=== PATIENT | male | born 1965 | race Asian ===

== ENCOUNTER 2024-07-07 19:47 | Inpatient (IN) | payer BC, MEDICAID ==
[~2024-07-07] VITALS: Ht 152.4 cm; Wt 51.3 kg
[2024-07-07 19:47] VITALS: BP 116/67; PULSE 105; RESP 18; TEMP 98.8; O2SAT 96
[2024-07-07] MEDS: metroNIDAZOLE 500 MG/NS PREMIX 100 ML IV ONE (20:34)
[2024-07-07] MEDS: NACL 0.9% 1,000 ML IV ONE (20:34)
[2024-07-07] MEDS: KETOROLAC 30 MG/ML VIAL IVP ONE (20:35)
[2024-07-07 20:44] LABS: BASOPHILS # (AUTO) 0.1 K/uL (0.00-0.22); BASOPHILS % (AUTO) 0.4 % (0.0-2.0); EOSINOPHILS % (AUTO) 0.2 % (0.0-4.0); HEMATOCRIT 34.3 % (36-52); HEMOGLOBIN 10.7 g/dL (12.0-18.0); LYMPHOCYTES # (AUTO) 1.1 K/uL (2.0-11.5); LYMPHOCYTES % (AUTO) 8.8 % (20.5-51.1); MEAN CORPUSCULAR HEMOGLOBIN 22 pg (27-31); MEAN CORPUSCULAR HGB CONC 31 g/dL (33-37); MEAN CORPUSCULAR VOLUME 70.9 fL (80-94); MONOCYTES # (AUTO) 1.3 K/uL (0.8-1.0); MONOCYTES % (AUTO) 10.1 % (1.7-9.3); NEUTROPHILS # (AUTO) 10.2 K/uL (1.8-7.7); NEUTROPHILS % (AUTO) 80.5 % (42.2-75.2); PLATELET COUNT (AUTO) 494 K/uL (140-450); RED BLOOD CELL COUNT(AUTO) 4.83 MIL/uL (4.20-6.10); RED CELL DISTRIBUTION WIDTH 20.4 % (11.6-13.7); WHITE BLOOD COUNT (AUTO) 12.6 K/uL (4.8-10.8)
[2024-07-07 21:00] LABS: ANION GAP 13.6 (8-16); CALCIUM 8.6 mg/dL (8.5-10.1); CARBON DIOXIDE 22.1 mmol/L (21-32)
[2024-07-07 21:01] LABS: ALBUMIN 2.9 g/dL (3.4-5.0); BILIRUBIN,DIRECT 0.1 mg/dL (0.0-0.3); TOTAL BILIRUBIN 0.2 mg/dL (0.0-1.0); TOTAL PROTEIN, SERUM 8.3 g/dL (6.4-8.2)
[2024-07-07 21:03] LABS: POTASSIUM 2.7 mmol/L (3.5-5.1)
[2024-07-07 21:08] LABS: LACTIC ACID 0.7 mmol/L (0.4-2.0)
[2024-07-07] MEDS: KCL 20 MEQ IN 100 mL PREMIX 100 ML IV ONE (21:55)
[2024-07-07] MEDS ORDERED: SUCR1TAB6 PO (23:21)
[2024-07-07] MEDS ORDERED: PANT40EC PO (23:21)
[2024-07-08] MEDS ORDERED: ONDANSETRON 4 MG/2 ML VIAL IVP PRN (01:10)
[2024-07-08] MEDS: NACL 0.9% 1,000 ML IV SCH ×2 (01:38→12:12)
[2024-07-08] MEDS ORDERED: metroNIDAZOLE 500 MG/NS PREMIX 100 ML IV ONE (01:40)
[2024-07-08] MEDS: metroNIDAZOLE 500 MG/NS PREMIX 100 ML IV SCH ×2 (04:23→12:19)
[2024-07-08 07:05] LABS: BASOPHILS # (AUTO) 0.1 K/uL (0.00-0.22); BASOPHILS % (AUTO) 0.8 % (0.0-2.0); EOSINOPHILS % (AUTO) 0.3 % (0.0-4.0); HEMATOCRIT 31.3 % (36-52); HEMOGLOBIN 10.2 g/dL (12.0-18.0); LYMPHOCYTES # (AUTO) 1.1 K/uL (2.0-11.5); LYMPHOCYTES % (AUTO) 10.5 % (20.5-51.1); MEAN CORPUSCULAR HEMOGLOBIN 23 pg (27-31); MEAN CORPUSCULAR HGB CONC 33 g/dL (33-37); MEAN CORPUSCULAR VOLUME 70.3 fL (80-94); MONOCYTES # (AUTO) 1.4 K/uL (0.8-1.0); MONOCYTES % (AUTO) 13.7 % (1.7-9.3); NEUTROPHILS # (AUTO) 7.9 K/uL (1.8-7.7); NEUTROPHILS % (AUTO) 74.7 % (42.2-75.2); PLATELET COUNT (AUTO) 470 K/uL (140-450); RED BLOOD CELL COUNT(AUTO) 4.46 MIL/uL (4.20-6.10); WHITE BLOOD COUNT (AUTO) 10.6 K/uL (4.8-10.8)
[2024-07-08 07:26] LABS: ANION GAP 12.2 (8-16); CALCIUM 8.1 mg/dL (8.5-10.1); CARBON DIOXIDE 22.7 mmol/L (21-32); CREATININE 1.5 mg/dL (0.6-1.3)
[2024-07-08 08:00] VITALS: BP 114/66; PULSE 58; RESP 18; TEMP 98.5; O2SAT 98
[2024-07-08 08:05] LABS: POTASSIUM 2.9 mmol/L (3.5-5.1)
[2024-07-08 08:36] LABS: ALBUMIN 2.7 g/dL (3.4-5.0); MAGNESIUM 2.6 mg/dL (1.8-2.4); PHOSPHORUS 2.3 mg/dL (2.5-4.9); TOTAL BILIRUBIN 0.2 mg/dL (0.0-1.0); TOTAL PROTEIN, SERUM 7.5 g/dL (6.4-8.2)
[2024-07-08] MEDS: PANTOPRAZOLE 40 MG TABEC PO SCH (12:13)
[2024-07-08] MEDS: KCL 20 MEQ IN 100 mL PREMIX 200 ML IV SCH (12:15)
[2024-07-08] MEDS: POTASSIUM CHLORIDE 10 MEQ TABER PO PRN (12:15)
[2024-07-08] MEDS: POTASSIUM CHLORIDE 20% 40 MEQ/15 ML UDC PO SCH (12:19)
[2024-07-08 20:00] VITALS: BP 131/78; PULSE 100; RESP 18; TEMP 98; O2SAT 99
[2024-07-08 20:11] VITALS: O2SAT 99
[2024-07-08] MEDS: MELATONIN 3 MG TAB PO ONE (23:02)
[2024-07-09 04:00] VITALS: BP 124/77; PULSE 82; RESP 18; TEMP 97.6; O2SAT 99
[2024-07-09 07:27] LABS: HEMATOCRIT 26.4 % (36-52); HEMOGLOBIN 8.4 g/dL (12.0-18.0); MEAN CORPUSCULAR HEMOGLOBIN 23 pg (27-31); MEAN CORPUSCULAR HGB CONC 32 g/dL (33-37); MEAN CORPUSCULAR VOLUME 70.9 fL (80-94); PLATELET COUNT (AUTO) 461 K/uL (140-450); RED BLOOD CELL COUNT(AUTO) 3.72 MIL/uL (4.20-6.10); WHITE BLOOD COUNT (AUTO) 8.2 K/uL (4.8-10.8)
[2024-07-09 07:42] VITALS: O2SAT 100
[2024-07-09 07:46] LABS: ALBUMIN 2.3 g/dL (3.4-5.0); ANION GAP 10.3 (8-16); CARBON DIOXIDE 23.3 mmol/L (21-32); CREATININE 1.2 mg/dL (0.6-1.3); PHOSPHORUS 2.5 mg/dL (2.5-4.9); POTASSIUM 3.6 mmol/L (3.5-5.1); TOTAL BILIRUBIN 0.2 mg/dL (0.0-1.0); TOTAL PROTEIN, SERUM 6.4 g/dL (6.4-8.2)
[2024-07-09 08:00] VITALS: BP 110/62; PULSE 74; PULSE 79; RESP 17; RESP 19; TEMP 97.8; O2SAT 99
[2024-07-09 08:09] LABS: BASOPHILS % (MANUAL) 0 % (0-2); BLASTS, MANUAL % 0 % (0-0); EOSINOPHILS % (MANUAL) 2 % (0-4); LYMPHOCYTES % (MANUAL) 27 % (20-46); METAMYELOCYTES % 0 % (0-0); MONOCYTES % (MANUAL) 7 % (5-12); MYELOCYTES % 0 % (0-0); OTHER CELLS,MANUAL % 0 (0-0); PROMYELOCYTES % 0 % (0-0)
[2024-07-09 08:10] LABS: ANISOCYTOSIS 2+; OVALOCYTES 1+; PLASMA CELLS 0; PLATELET ESTIMATE INCREASED; SCHISTOCYTES 1+; SMUDGE CELLS 0; TEAR DROP CELLS 1+
[2024-07-09] MEDS: FOLIC ACID 1 MG TAB PO SCH (09:00)
[2024-07-09] MEDS: CYANOCOBALAMIN 100 MCG TAB PO SCH (09:00)
[2024-07-09 16:00] VITALS: BP 106/56; PULSE 69; RESP 17; TEMP 98; O2SAT 99
[2024-07-09 20:00] VITALS: BP 125/64; PULSE 94; RESP 19; TEMP 98.2; O2SAT 98
[2024-07-09 20:06] VITALS: O2SAT 98
[2024-07-10 04:00] VITALS: BP 108/58; PULSE 82; RESP 17; TEMP 97.7; O2SAT 99
[2024-07-10 07:11] LABS: BASOPHILS # (AUTO) 0.1 K/uL (0.00-0.22); BASOPHILS % (AUTO) 1.2 % (0.0-2.0); EOSINOPHILS # (AUTO) 0.6 K/uL (0-0.4); EOSINOPHILS % (AUTO) 7.4 % (0.0-4.0); HEMATOCRIT 24.6 % (36-52); LYMPHOCYTES # (AUTO) 2.1 K/uL (2.0-11.5); LYMPHOCYTES % (AUTO) 26.3 % (20.5-51.1); MEAN CORPUSCULAR HEMOGLOBIN 23 pg (27-31); MEAN CORPUSCULAR HGB CONC 32 g/dL (33-37); MEAN CORPUSCULAR VOLUME 71.1 fL (80-94); MONOCYTES # (AUTO) 1.5 K/uL (0.8-1.0); MONOCYTES % (AUTO) 18.7 % (1.7-9.3); NEUTROPHILS # (AUTO) 3.7 K/uL (1.8-7.7); NEUTROPHILS % (AUTO) 46.4 % (42.2-75.2); PLATELET COUNT (AUTO) 461 K/uL (140-450); RED BLOOD CELL COUNT(AUTO) 3.46 MIL/uL (4.20-6.10); RED CELL DISTRIBUTION WIDTH 20.4 % (11.6-13.7); WHITE BLOOD COUNT (AUTO) 7.9 K/uL (4.8-10.8)
[2024-07-10 07:14] LABS: ALBUMIN 2.3 g/dL (3.4-5.0); ANION GAP 10.3 (8-16); CALCIUM 8.1 mg/dL (8.5-10.1); MAGNESIUM 1.4 mg/dL (1.8-2.4); PHOSPHORUS 3.5 mg/dL (2.5-4.9); POTASSIUM 3.3 mmol/L (3.5-5.1); TOTAL BILIRUBIN 0.2 mg/dL (0.0-1.0); TOTAL PROTEIN, SERUM 6.3 g/dL (6.4-8.2)
[2024-07-10] MEDS: POTASSIUM CHLORIDE 10 MEQ TABER PO SCH ×2 (07:45→13:26)
[2024-07-10 08:00] VITALS: PULSE 82; RESP 17; O2SAT 99
[2024-07-10 08:30] VITALS: O2SAT 98
[2024-07-10 12:00] VITALS: BP 127/69; PULSE 83; RESP 17; TEMP 98; O2SAT 99
[2024-07-10] MEDS: VITAMIN D 400 IU TAB PO SCH (15:56)
[2024-07-10 16:00] VITALS: BP 118/64; PULSE 79; RESP 19; TEMP 97.9; O2SAT 99
[2024-07-10] MEDS: MAGNESIUM OXIDE 400 MG TAB PO PRN (16:01)
[2024-07-10 20:00] VITALS: BP 108/57; PULSE 76; RESP 18; TEMP 97.8; O2SAT 99
[2024-07-10] MEDS: MELATONIN 3 MG TAB PO PRN (22:59)
[2024-07-11 04:00] VITALS: BP 114/64; PULSE 87; RESP 18; TEMP 97.6; O2SAT 99
[2024-07-11 08:00] VITALS: BP 114/64; PULSE 78; RESP 18; TEMP 97.9; O2SAT 98
[2024-07-11] MEDS: VITAMIN D 400 IU TAB PO SCH (08:48)
[2024-07-11 11:38] VITALS: BP 114/64; PULSE 78; RESP 18; TEMP 97.9
== END 2024-07-11 13:35 | disposition home or self-care (01) | DRG 720 ==
LOC: MED 19:47 → MMU 07-08 01:13 → MTU 07-08 01:13
PROVIDERS: ADMIT Nurse Practitioner Family; ATTEND Nurse Practitioner Family
DX: A41.9 Sepsis, unspecified organism (principal); N17.0 Acute kidney failure with tubular necrosis; E44.0 Moderate protein-calorie malnutrition; E86.0 Dehydration; D53.9 Nutritional anemia, unspecified; A08.4 Viral intestinal infection, unspecified; E87.6 Hypokalemia; Z79.899 Other long term (current) drug therapy; Z88.8 Allergy status to other drugs, medicaments and biological substances; Z68.22 Body mass index [BMI] 22.0-22.9, adult
CPT/HCPCS: 36415; 76770; 80048; 80053; 80076; 83605; 83735; 84100; 85025; 87040; 87045; 87070; 87081; 87177; 93005; 96361; 96374; 97163-GP; 97530; 99285; J0696; J1885; J3480; J3490; J7060; Q0092

== ENCOUNTER 2024-07-31 12:30 | Emergency (ER) | payer BC ==
[~2024-07-31] VITALS: Ht 170.2 cm; Wt 54.0 kg
[~2024-07-31 12:30] MED LIST: PANT40EC PO; SUCR1TAB6 PO
[2024-07-31 12:33] VITALS: BP 122/80; PULSE 93; RESP 16; TEMP 98; O2SAT 98
[2024-07-31 12:58] LABS: BASOPHILS # (AUTO) 0.1 K/uL (0.00-0.22); BASOPHILS % (AUTO) 2.4 % (0.0-2.0); EOSINOPHILS # (AUTO) 0.3 K/uL (0-0.4); EOSINOPHILS % (AUTO) 5.1 % (0.0-4.0); HEMATOCRIT 34.3 % (36-52); HEMOGLOBIN 10.6 g/dL (12.0-18.0); LYMPHOCYTES # (AUTO) 1.8 K/uL (2.0-11.5); LYMPHOCYTES % (AUTO) 31.5 % (20.5-51.1); MEAN CORPUSCULAR HEMOGLOBIN 22 pg (27-31); MEAN CORPUSCULAR HGB CONC 31 g/dL (33-37); MEAN CORPUSCULAR VOLUME 71.3 fL (80-94); MONOCYTES # (AUTO) 0.6 K/uL (0.8-1.0); MONOCYTES % (AUTO) 10.5 % (1.7-9.3); NEUTROPHILS # (AUTO) 2.9 K/uL (1.8-7.7); NEUTROPHILS % (AUTO) 50.5 % (42.2-75.2); PLATELET COUNT (AUTO) 576 K/uL (140-450); RED BLOOD CELL COUNT(AUTO) 4.82 MIL/uL (4.20-6.10); RED CELL DISTRIBUTION WIDTH 20.8 % (11.6-13.7); WHITE BLOOD COUNT (AUTO) 5.8 K/uL (4.8-10.8)
[2024-07-31 13:20] LABS: ALBUMIN 3.6 g/dL (3.4-5.0); ANION GAP 9.5 (8-16); CARBON DIOXIDE 32.2 mmol/L (21-32); CREATININE 1.1 mg/dL (0.6-1.3); POTASSIUM 3.7 mmol/L (3.5-5.1); TOTAL BILIRUBIN 0.2 mg/dL (0.0-1.0); TOTAL PROTEIN, SERUM 8.8 g/dL (6.4-8.2)
[2024-07-31 14:18] LABS: AMPHETAMINE, URINE NEGATIVE ng/ml (NEG <=1000); BARBITURATE, URINE NEGATIVE ng/ml (NEG <=200); BENZODIAZEPINE, URINE NEGATIVE ng/mL (NEG <=200); CANNABINOID, URINE NEGATIVE ng/mL (NEG <=50); COCAINE, URINE NEGATIVE ng/mL (NEG <=300); OPIATE, URINE NEGATIVE ng/mL (NEG <=2000); PHENCYCLIDINE SCREEN,URINE NEGATIVE ng/mL (NEG <=25)
[2024-07-31] MEDS ORDERED: ONDA-188 SL (16:15)
[2024-07-31] MEDS ORDERED: ACET500T99 PO (16:15)
[2024-07-31 16:30] VITALS: BP 122/70; PULSE 80; RESP 14; TEMP 98; O2SAT 100
== END 2024-07-31 16:33 | disposition home or self-care (01) ==
LOC: MED 12:30
DX: R07.89 Other chest pain (principal); R11.2 Nausea with vomiting, unspecified; K21.9 Gastro-esophageal reflux disease without esophagitis; Z79.899 Other long term (current) drug therapy
CPT/HCPCS: 36415; 80053; 80305; 83880; 84484; 85025; 93005; 99284